=== PATIENT | female | born 1945 | race Caucasian/White ===

== ENCOUNTER → 2017-01-13 | Outpatient (CLI) | payer OTHER ==
--- NOTE | 2017-01-13 13:25 | MRI ---
EXAM DESCRIPTION: Lumbar Spine w/o Contrast CLINICAL HISTORY: 71 years, Female, RADICULITIS , left hip pain, laminectomy L4-5 2014 COMPARISON: None. FINDINGS: Bone marrow has normal signal characteristics except for laminectomy changes L4-5. Straightening. Conus terminates at L1. Left lumbar curvature probably degenerative. Sagittal view shows mild bulge and narrowing T11-12 minimal bulge T12-L1. L1-2 shows narrowing with diffuse bulging disc extending the exit foramen bilaterally slightly more on the right. Mild facet degenerative change. At L2-3 narrowing with diffuse bulging disc osteophyte extending the exit foramen bilaterally more on the right. Mild facet degenerative change. At L3-4, narrowing with diffuse bulging disc slightly asymmetric to the right with slight impression on the thecal sac.. There is mild foraminal narrowing, more on the left. Narrowing and postsurgical changes L4-5. Some field artifact related to postsurgical change. Diffuse bulging disc present extends into the exit foramen bilaterally more on the left. Slight impingement the exiting left L4 root. About 4 mm of anterolisthesis. At L5-S1 mild narrowing bulging disc asymmetric to the left. Facet degenerative change more on left with slight left lateral recess encroachment IMPRESSION: 1. Mild to moderate disc disease throughout the lumbar spine. 2. Postsurgical changes L4-5 with diffuse bulging disc and 4 mm of anterolisthesis. Bilateral foraminal narrowing and slight impingement on the exiting left L4 root. 3. Bulging discs L2-3 and L3-4, both levels asymmetric to the right. There is slight foraminal narrowing on the left L3-4. Other mild disc changes present as discussed Electronically signed by: Khang Montanez MD 01/13/2017 1:22 PM CDT
== END | disposition home or self-care (01) ==
LOC: MRI 09:30
PROVIDERS: ATTEND Nurse Practitioner Family
DX: M51.37 Other intervertebral disc degeneration, lumbosacral region (principal)

== ENCOUNTER → 2018-01-30 | Outpatient (CLI) | payer MEDICARE, OTHER ==
--- NOTE | 2018-02-01 10:00 | MRI ---
MRI right femur/thigh without contrast INDICATION: Upper thigh pain into groin pain difficult walking TECHNIQUE: Noncontrast MR imaging right thigh/femur FINDINGS: There is artifact at the right knee suggesting previous arthroplasty. No destructive lesion or fracture in the femoral shaft. There is however prominent fluid in the right hip. Dedicated hip MRI would be useful. There is suggestion of partial tearing of the gluteal tendons at the greater trochanter as well. No hamstring proximal detachment/rupture. No advanced muscle atrophy in the thigh. No inflammatory process noted or soft tissue mass. IMPRESSION: Partially visualized large effusion in the right hip recommend dedicated MRI of the right hip Tendinopathy and probable partial tearing of the right gluteal tendons which will be better characterized on a dedicated hip MRI Status post right knee arthroplasty No acute process in the thigh otherwise Electronically signed by: Mason Clemente MD 02/01/2018 9:58 AM CDT
== END ==
LOC: MRI 13:45
PROVIDERS: ATTEND Nurse Practitioner Family
DX: M79.651 Pain in right thigh (principal); Z96.651 Presence of right artificial knee joint

== ENCOUNTER → 2018-02-11 | Outpatient (CLI) | payer MEDICARE ==
--- NOTE | 2018-02-12 08:19 | MRI ---
MRI right hip without contrast INDICATION: Groin pain abnormal hip effusion noted on previous MRI January 30 TECHNIQUE: Noncontrast MR imaging right hip FINDINGS: There is mild osteoarthrosis of the right hip. There is prominent joint fluid. Subchondral cystic changes and edema are noted primarily along the medial aspect with diffuse degenerative labral tear. No discrete fracture or stress fracture. No active osteonecrosis. There is tendinopathy and interstitial fissuring of the gluteal tendons without rupture or retraction. There is a diffuse labral tear with para labral cyst formation and synovitis. This is most severe anterior superior. IMPRESSION: Mild osteoarthrosis right hip with diffuse chronic degenerative labral tear and para labral cyst formation Large joint effusion with mild synovitis Tendinopathy of the gluteal tendons without rupture or retraction No hamstring rupture or retraction Electronically signed by: Mason Clemente MD 02/12/2018 8:18 AM CDT
== END ==
LOC: MRI 13:39
PROVIDERS: ATTEND Nurse Practitioner Family
DX: R93.7 Abnormal findings on diagnostic imaging of other parts of musculoskeletal system (principal); M16.11 Unilateral primary osteoarthritis, right hip; M25.451 Effusion, right hip

== ENCOUNTER → 2018-02-19 | Outpatient (CLI) | payer MEDICARE ==
--- NOTE | 2018-02-19 13:39 | RAD ---
EXAM DESCRIPTION: Hip,Right 2 Views CLINICAL HISTORY: 72 years Female, PAIN IN RIGHT HIP COMPARISON: MRI of the right hip dated 02/11/2018. FINDINGS: The visualized bones are well-mineralized.No acute fracture or dislocation. Mild osteoarthritis. The soft tissues appear grossly unremarkable. IMPRESSION: Mild osteoarthritis of the right hip. Electronically signed by: Zoë Fuentes MD 02/19/2018 1:38 PM CDT
--- NOTE | 2018-02-19 13:39 | RAD ---
EXAM DESCRIPTION: Pelvis CLINICAL HISTORY: 72 years Female, PAIN IN RIGHT HIP COMPARISON: MRI of the right hip dated 02/11/2018. TECHNIQUE: AP radiograph of the pelvis was performed. FINDINGS: The pelvic ring appears grossly intact on this single AP radiograph. No acute fracture or dislocation. Bilateral sacroiliac joints appear normal. Mild degenerative changes are noted in the right hip The visualized lumbo-sacral spine demonstrates mild degenerative changes. IMPRESSION: Single AP radiograph of the pelvis demonstrates grossly intact pelvic ring. . Mild right hip osteoarthritis. Electronically signed by: Zoë Fuentes MD 02/19/2018 1:38 PM CDT
== END ==
LOC: RAD 09:16
PROVIDERS: ATTEND Orthopaedic Surgery
DX: M16.11 Unilateral primary osteoarthritis, right hip (principal)

== ENCOUNTER → 2018-02-20 | Outpatient (CLI) | payer MEDICARE | LOC: LAB.O 13:54 | PROVIDERS: ATTEND Orthopaedic Surgery | DX: M25.551 Pain in right hip (principal) ==

== ENCOUNTER 2018-02-27 06:10 | Day surgery (SDC) | payer MEDICARE ==
[2018-02-27] MEDS ORDERED: LACTATED RINGERS 1,000 ML ONE (06:39)
[2018-02-27] MEDS ORDERED: LIDOCAINE 1% 10 ML VIAL INJ ONE (07:00)
[2018-02-27] MEDS ORDERED: PROPOFOL 200 MG/20 ML VIAL IV ONE (07:00)
[2018-02-27] MEDS ORDERED: BUPIVACAINE 0.25% INJ 30 ML VIAL INJ ONE (07:09)
[2018-02-27] MEDS ORDERED: methylPREDNISolone ACETATE 80 MG/ML VIAL ONE (07:10)
[2018-02-27] MEDS ORDERED: LIDOCAINE 1% W/ EPINEPHRINE 20 ML VIAL INJ ONE (07:10)
[2018-02-27 09:58] VITALS: BP 127/68; TEMP 98; O2SAT 97
--- NOTE | 2018-03-05 08:56 | OP ---
DATE OF PROCEDURE: 02/27/18 PREOPERATIVE DIAGNOSIS: 1. Osteoarthritis of the hip. POSTOPERATIVE DIAGNOSIS: 1. Osteoarthritis of the hip. PROCEDURE: 1. Intraarticular injection of the hip. SURGEON: Uvaldo Foss MD. CAR SPOTTER: Juan Antonio Solorio CST, SA-C. ANESTHESIA: Conscious sedation. COMPLICATIONS: None. FINDINGS: Arthritis of the hip. INDICATION: Ms. Muro has a history of pain in the groin that has been refractory to conservative measures. Because of the pain, she requested injection in the hip. After discussing the risks, benefits and alternatives to that, the patient has given informed consent for that. PROCEDURE: The patient was brought to the Operating Room and placed in supine position. Conscious sedation was administered and the leg was flexed, abducted and externally rotated. The groin was prepped and fluoroscopic imaging was used to confirm needle placement into the hip joint through a medial portal. Once placement had been confirmed, a combination of lidocaine and Depo-Medrol were injected into the joint. After injection, the needle was withdrawn. Pressure was held on the injection site. A sterile band-aid was placed. The patient was then taken back to the Day Surgery Unit. POSTOPERATIVE INSTRUCTIONS: The patient will be weight-bearing as tolerated. The patient will followup with us in about 10 days. #[id number] [facility]
== END 2018-02-27 09:50 | disposition home or self-care (01) ==
LOC: AMB 06:10
PROVIDERS: ATTEND Orthopaedic Surgery
DX: M16.11 Unilateral primary osteoarthritis, right hip (principal); I10 Essential (primary) hypertension; Z87.891 Personal history of nicotine dependence; Z88.5 Allergy status to narcotic agent; Z79.899 Other long term (current) drug therapy
CPT/HCPCS: 01200; 20610; 76000; 87070; J1030; J3490; J7120

== ENCOUNTER → 2018-03-13 | Outpatient (CLI) | payer MEDICARE | LOC: LAB.O 10:13 | PROVIDERS: ATTEND Orthopaedic Surgery | DX: Z01.818 Encounter for other preprocedural examination (principal) ==

== ENCOUNTER → 2018-03-18 | Outpatient (CLI) | payer MEDICARE | LOC: RESP 14:47 | PROVIDERS: ATTEND Nurse Practitioner Family | DX: I10 Essential (primary) hypertension (principal) ==

== ENCOUNTER → 2018-04-15 | Outpatient (CLI) | payer MEDICARE | LOC: LAB.O 09:27 | PROVIDERS: ATTEND Orthopaedic Surgery | DX: Z01.818 Encounter for other preprocedural examination (principal) ==

== ENCOUNTER 2018-04-21 05:53 | Inpatient (IN) | payer MEDICARE ==
--- NOTE | 2018-04-20 11:25 | HP ---
CHIEF COMPLAINT: Right hip pain. HISTORY OF PRESENT ILLNESS: Ms. Muro is a 72-year-old female with a history of severe groin pain that has been getting progressively worse over several years. She has had pain that has been nonresponsive to conservative measures. Because of her pain, she has requested operative intervention. After discussing the risks, benefits and alternatives to operative intervention , the patient has given informed consent for total hip arthroplasty. PAST SURGICAL HISTORY: 1. Bilateral total knee arthroplasty. MEDICATIONS: 1. Potassium. 2. PreserVision. 3. Biotin. 4. Multiple vitamins. ALLERGIES: She states no allergies, but she says morphine does not give her any relief and requests we do not use it. CODE STATUS: Full code. IMMUNIZATIONS: Up to date. FAMILY HISTORY: None pertinent to today's complaint. SOCIAL HISTORY: The patient does not smoke or use any illicit drugs. She does drink on occasion. REVIEW OF SYSTEMS: Negative except as indicated in the History of Present Illness. PHYSICAL EXAMINATION: VITAL SIGNS: Blood pressure 138/99. Pulse 67. Height 5'7". Weight 186 pounds. MENTAL STATUS: The patient is awake, alert, and is able to give a good history and participate in the physical. The patient is oriented to person, place and time. SKIN: Normal tone and turgor. HEENT: Normocephalic, atraumatic. Pupils equal, round and reactive. Mucosal membranes are moist. NECK: Normal range of motion. No thyromegaly, no lymphadenopathy. CHEST: Normal respiratory excursion. CARDIAC: Regular rate and rhythm. No murmurs, rubs or gallops. MUSCULOSKELETAL: The right upper extremity shows some minor discomfort with abduction and forward flexion. She does maintain full range of motion. Sensation is intact. It is warm and well perfused. There is no deformity or crepitus. The left upper extremity shows full painless range of motion. Sensation is intact. It is warm and well perfused. Strength is 5/5. The left lower extremity shows no significant pain with range of motion of the hip and knee. She has no deformity. Sensation is intact. It is warm and well perfused. Strength is 5/5. The right lower extremity show severe pain with range of motion of the hip and she has 0 degrees of internal rotation and about 20 to 30 degrees of external rotation today. She walks with an antalgic gait. Adduction is to about 25 degrees today. IMAGING: X-rays show joint space narrowing. ASSESSMENT: 1. Arthritis. PLAN: The plan at this point is for total hip arthroplasty. We have discussed the risks, benefits, and alternatives to that and the patient has given informed consent. [facility][id number] [facility]
--- NOTE | 2018-04-20 12:11 | RAD ---
Procedure: XR CHEST 2 VIEWS Exam Date: 04/20/2018 Ordering Provider: EJ ADAMS Clinical Indication: pre op Comparison: 11/17/2009 Findings: Cardiomediastinal silhouette is within normal limits. No focal lung consolidation. No pleural effusion. No pneumothorax. No acute osseous abnormality. Impression: 1. No acute abnormalities in the chest. Electronically signed by: Steven Hines MD 04/20/2018 12:10 PM CDT
[2018-04-21] MEDS ORDERED: TRANEXAMIC ACID 1,000 MG/10 ML VIAL ONE ×2 (05:54→05:56)
[2018-04-21] MEDS ORDERED: LACTATED RINGERS 1,000 ML ONE (05:54)
[2018-04-21] MEDS ORDERED: ceFAZolin SODIUM 1 GM VIAL ONE ×3 (05:55→06:23)
[2018-04-21] MEDS ORDERED: SODIUM CHL 0.9% 100ML MINI-BAG 100 ML IVPB ONE (05:55)
[2018-04-21] MEDS ORDERED: SODIUM CHLORIDE 0.9% 250ML 250 ML ONE ×3 (06:03→21:15)
[2018-04-21] MEDS ORDERED: VANCOMYCIN HCL INJ 1,000 MG VIAL IVPB ONE ×4 (06:03→21:15)
[2018-04-21] MEDS ORDERED: SODIUM CHLORIDE 0.9% 100ML 100 ML IVPB ONE (06:13)
[2018-04-21] MEDS ORDERED: ELECTROLYTE-A 1,000 ML IVS ONE ×2 (06:18→09:11)
[2018-04-21] MEDS ORDERED: ACETAMINOPHEN IV 1000MG 100 ML ONE (06:18)
[2018-04-21] MEDS ORDERED: MORPHINE SULF *EPIDURAL* 1 MG/ML VIAL ONE (06:18)
[2018-04-21] MEDS ORDERED: ROCURONIUM BROMIDE 10 MG/ML VIAL ONE (06:19)
[2018-04-21] MEDS ORDERED: MIDAZOLAM INJ 2 MG/2 ML VIAL ONE (06:19)
[2018-04-21] MEDS ORDERED: fentaNYL CITRATE INJ 50 MCG/ML AMP ONE (06:19)
[2018-04-21] MEDS ORDERED: PROMETHAZINE HCL INJ 12.5 MG in SODIUM CHLORIDE 0.9% 50ML 50 ML IVPB PRN (07:25)
[2018-04-21] MEDS ORDERED: PROMETHAZINE HCL INJ 25 MG in SODIUM CHLORIDE 0.9% 50ML 50 ML IVPB PRN (07:25)
[2018-04-21] MEDS ORDERED: ALUMINUM & MAGNESIUM HYDROXIDE 30 ML UD PO PRN (07:25)
[2018-04-21] MEDS ORDERED: ZOLPIDEM TARTRATE 5 MG TAB PO PRN (07:25)
[2018-04-21] MEDS ORDERED: NALOXONE HCL INJ 0.4 MG/ML VIAL IV PRN (07:25)
[2018-04-21] MEDS ORDERED: SODIUM CHLORIDE 0.9% (FLUSH) 10 ML SYG IV PRN (07:25)
[2018-04-21] MEDS ORDERED: BENZOCAINE-MENTH LOZ (CEPACOL) 1 EA LOZ MT PRN (07:25)
[2018-04-21] MEDS ORDERED: ACETAMINOPHEN 325 MG TAB PO PRN (07:25)
[2018-04-21] MEDS ORDERED: BISACODYL SUPPOSITORY 10 MG PR PRN (07:25)
[2018-04-21] MEDS ORDERED: MAGNESIUM HYDROXIDE 30 ML UD PO PRN (07:25)
[2018-04-21] MEDS ORDERED: DEX 5% W/NACL 0.45% 1000ML 1,000 ML IVS PRN (07:25)
[2018-04-21] MEDS ORDERED: ACETAMINOPHEN 500 MG TAB PO PRN (07:25)
[2018-04-21] MEDS ORDERED: TEMAZEPAM 15 MG CAP PO PRN (07:25)
[2018-04-21] MEDS ORDERED: MORPHINE SULFATE INJ 10 MG/ML VIAL IM PRN (07:25)
[2018-04-21] MEDS ORDERED: traMADol HCL 50 MG TAB PO PRN (07:25)
[2018-04-21] MEDS ORDERED: HYDROmorphone PCA 0.2 MG/ML 1 BAG BAG IVPB SCH (07:30)
[2018-04-21] MEDS ORDERED: MORPHINE PCA 1 MG/ML 100 ML BAG IVPB SCH (07:30)
[2018-04-21] MEDS: BUPIVACAINE LIPOSOME 13.3 MG/ML VIAL INJ ONE ×2 (08:55→08:58)
[2018-04-21] MEDS: BUPIVACAINE 0.5% 30 ML VIAL INJ ONE ×2 (08:55→08:58)
[2018-04-21] MEDS: ONDANSETRON INJ 4 MG/2 ML VIAL IV PRN ×2 (10:36→15:57)
--- NOTE | 2018-04-21 11:53 | CONS ---
SUPERVISING PHYSICIAN: Dimitry Gerber MD REFERRING PHYSICIAN: Uvaldo Foss MD HISTORY OF PRESENT ILLNESS: This is a 72-year-old female who has been progressively having right hip pain. Conservative measures were utilized at first, however, there was no resolution of the pain. Therefore, she opted for a right total hip arthroplasty. This was done today with no intraoperative complications. She came to the Medical/Surgical Unit postoperatively in no acute distress with a pain rating of 3. She is alert and oriented postoperatively. PAST MEDICAL HISTORY: 1. Hypertension. 2. Hyperlipidemia. 3. Marvin thyroiditis. 4. Sjgren's disease. PAST SURGICAL HISTORY: 1. Bilateral total knee arthroplasty. 2. Laminectomy. 3. Hysterectomy. 4. Breast augmentation. 5. Bunionectomy. HOME MEDICATIONS: 1. Lipitor 40 mg p.o. at bedtime. 2. Vitamin B complex with biotin and folic acid 1 capsule p.o. daily. 3. Biotin maximum strength 10,000 mcg p.o. daily. 4. Bupropion 300 mg p.o. daily. 5. Mobic 15 mg p.o. daily. 6. Toprol XL 50 mg p.o. daily. 7. Multivitamin 1 cap p.o. b.i.d. 8. Potassium 75 mg p.o. daily. 9. Amour thyroid 90 mg p.o. daily. 10. Vitamins A and D with K 1 capsule p.o. daily. ALLERGIES: NO KNOWN DRUG ALLERGIES. She does state morphine is ineffective. FAMILY HISTORY: She has some family that have hypertension. SOCIAL HISTORY: The patient does not drink, does not smoke, does not utilize any illicit drugs. REVIEW OF SYSTEMS: CONSTITUTIONAL: No fever or chills. No recent weight loss or weight gain. HEENT: No headaches, vision changes, ear pain, nasal congestion or throat pain. RESPIRATORY: No cough, hemoptysis or pleuritic chest pain. CARDIOVASCULAR: No chest pain, palpitations or peripheral edema. GASTROINTESTINAL: No nausea, vomiting, diarrhea, constipation or abdominal pain. GENITOURINARY: No dysuria, frequency or flank pain. HEMATOLOGIC: No easy bruising and no transfusion reaction. MUSCULOSKELETAL: Positive for right hip pain. Otherwise, negative for muscle cramps, joint pain or joint swelling. ENDOCRINE: No polydipsia, polyuria or polyphagia. No heat or cold intolerance. NEUROLOGIC: No syncope, paresthesias or seizures. PHYSICAL EXAMINATION: VITAL SIGNS: Blood pressure 115/78. Heart rate 64. Respiratory rate 16. Temperature 98.3. Oxygen saturation 96%. GENERAL: Ms. Muro is a 72-year-old male in no active distress currently. HEENT: Normocephalic, atraumatic. Pupils are equal and reactive. No nasal drainage. Throat with moist mucosa. NECK: Supple. Midline trachea. No jugular venous distention. CHEST: Symmetrical with equal rise and fall of the chest with inspiration and expiration. Lung sounds are clear to auscultation bilaterally. CARDIOVASCULAR: Regular rate and rhythm. Normal S1, S2. ABDOMEN: Soft. Positive bowel sounds. GENITOURINARY: Deferred. EXTREMITIES: Lower extremities with no significant edema. Pulses 2+. Capillary refill is less than 2 seconds. Right hip with a dressing which is dry and intact. NEUROLOGIC: The patient is alert and oriented. Moves all extremities. Extraocular movements are intact. LABORATORY: Labs are reviewed. Preoperative labs appear to be unremarkable. ASSESSMENT: 1. Right hip osteoarthritis status post right total hip arthroplasty, postoperative day 0. 2. Hypertension. 3. Hyperlipidemia. 4. Hypothyroidism. 5. History of Sjgren's disease. PLAN: At this point, postoperative orders are being utilized via Dr. Foss's postoperative orders. Pain control via RETINAL ANGIOGRAPHER pump at this time. We will resume her home medications. We will check hemoglobin and hematocrit in the morning. #[id number] [facility]
[2018-04-21] MEDS: MAGNESIUM OXIDE 400 MG TAB PO SCH (12:36)
[2018-04-21] MEDS: IV SET AND CAP CHANGE INJ INJ SCH (12:36)
[2018-04-21] MEDS: CELECOXIB 100 MG CAP PO SCH ×2 (12:36→17:29)
[2018-04-21] MEDS ORDERED: ceFAZolin SODIUM 2 GRAMS PREMI 50 ML IVPB ONE ×3 (13:59→21:16)
[2018-04-21] MEDS: ceFAZolin SODIUM 2 GRAMS PREMI 2 GM in PREMIX BAG 1 BAG IVPB SCH ×2 (14:01→22:02)
--- NOTE | 2018-04-21 14:36 | RAD ---
EXAM DESCRIPTION: Hip, right 2 Views CLINICAL HISTORY: post op COMPARISON: Radiographs of the AP pelvis. TECHNIQUE: AP: neutral and abduction images. Right hip. FINDINGS: Postoperative image of right total hip arthroplasty. Customary position and near-anatomic alignment. Acetabular component with fixation by 3 screws. Normal bone density around the screws in the component. Normal bone density around the femoral stem. Typical postsurgical soft tissue changes in the upper thigh. No abnormal radiodense objects in the soft tissues or joint spaces. IMPRESSION: Postop right total hip arthroplasty. Customary position and near-anatomic alignment. No bone or hardware complications. Electronically signed by: Juan Antonio Howard MD 04/21/2018 2:34 PM CDT
--- NOTE | 2018-04-21 14:38 | RAD ---
EXAM DESCRIPTION: Pelvis CLINICAL HISTORY: post op COMPARISON: None Available. TECHNIQUE: AP view only. FINDINGS: No fracture dislocation. Normal bone density. Right total hip arthroplasty. Customary position and near-anatomic alignment of the hardware. Bone density around the hardware is unremarkable. 3 screws for fixation of the acetabular component. No abnormal radiodense objects in the soft tissues or joint spaces. Upper pelvis above the S1 level was not imaged on the study. IMPRESSION: Status post right total hip arthroplasty. Customary position and near-anatomic alignment. Electronically signed by: Juan Antonio Howard MD 04/21/2018 2:36 PM CDT
[2018-04-21] MEDS: VANCOMYCIN HCL INJ 1,000 MG in SODIUM CHLORIDE 0.9% 250ML 250 ML IVPB SCH (17:29)
[2018-04-21] MEDS ORDERED: MULTIPLE VITAMIN 1 EA TAB PO ONE (19:52)
[2018-04-21] MEDS ORDERED: ENOXAPARIN SODIUM 30 MG/0.3 ML SYG SUBCU ONE (19:53)
[2018-04-21] MEDS ORDERED: THYROID 60 MG TAB PO ONE (19:53)
[2018-04-21] MEDS: DOCUSATE CALCIUM 240 MG CAP PO SCH (20:34)
[2018-04-21] MEDS: ATORVASTATIN 20 MG TAB PO SCH (20:34)
[2018-04-21] MEDS: MULTIPLE VITAMINS W/ MINERALS 1 EA TAB PO SCH (20:37)
[2018-04-21] MEDS: ENOXAPARIN SODIUM 30 MG/0.3 ML SYG SUBCU SCH (22:33)
[2018-04-22] MEDS: VANCOMYCIN HCL INJ 1,000 MG in SODIUM CHLORIDE 0.9% 250ML 250 ML IVPB SCH (06:18)
[2018-04-22] MEDS: THYROID 60 MG TAB PO SCH (06:19)
[2018-04-22] MEDS: ceFAZolin SODIUM 2 GRAMS PREMI 2 GM in PREMIX BAG 1 BAG IVPB SCH (06:19)
[2018-04-22] MEDS: CELECOXIB 100 MG CAP PO SCH ×2 (08:05→16:37)
[2018-04-22] MEDS: CYCLOBENZAPRINE HCL 10 MG TAB PO PRN ×2 (08:06→20:44)
[2018-04-22] MEDS: HYDROcodone 5MG/APAP 325MG 1 EA TAB PO PRN ×4 (08:06→20:44)
[2018-04-22] MEDS: METOPROLOL SUCCINATE XL 50 MG TAB PO SCH (09:31)
[2018-04-22] MEDS: MULTIPLE VITAMINS W/ MINERALS 1 EA TAB PO SCH ×2 (09:31→20:43)
[2018-04-22] MEDS: Wellbutrin XL 150 MG TAB PO SCH (09:31)
[2018-04-22] MEDS: MAGNESIUM OXIDE 400 MG TAB PO SCH (09:31)
[2018-04-22] MEDS: ENOXAPARIN SODIUM 30 MG/0.3 ML SYG SUBCU SCH ×2 (11:16→22:32)
--- NOTE | 2018-04-22 14:10 | PN ---
SUPERVISING PHYSICIAN: Dimitry Gerber MD DATE: 04/22/18 SUBJECTIVE: The patient is sitting up in her chair in her hospital room. She has no complaints. She requested that the morphine be stopped as it made her feel kind of funny and her pain is being controlled with the [place]. Otherwise, no shortness of breath, nausea, vomiting, diarrhea or constipation. OBJECTIVE: VITAL SIGNS: Afebrile. Heart rate 76. Blood pressure 110/72. Respiratory rate 96. RESPIRATORY: Essentially clear to auscultation bilaterally. CARDIAC: Regular rate and rhythm. GASTROINTESTINAL: Abdomen is soft, nondistended, nontender. Bowel sounds are positive. EXTREMITIES: Bilateral pedal pulses are palpable at +2. Her dressing to her lateral right hip is dry and intact. NEUROLOGIC: Awake, alert and oriented times three. LABORATORY: Hemoglobin 10.3, hematocrit 31.3. All other labs and films have been reviewed via the EMR. ASSESSMENT: 1. Right hip osteoarthritis status post right total hip arthroplasty per Dr. Uvaldo Foss, orthopedic surgeon, postoperative day 1. 2. Hypertension. 3. Hyperlipidemia. 4. Hypothyroidism. 5. History of Sjgren's disease. PLAN: We will continue present supportive care. Orthopedic issues will be per Dr. Uvaldo Foss, orthopedic surgeon. She will continue with her strengthening and conditioning per physical therapy. I encouraged good pulmonary hygiene. We will follow the patient as needed. [facility][id number] [facility]
[2018-04-22] MEDS: ATORVASTATIN 20 MG TAB PO SCH (20:43)
[2018-04-22] MEDS: DOCUSATE CALCIUM 240 MG CAP PO SCH (20:44)
[2018-04-23] MEDS: HYDROcodone 5MG/APAP 325MG 1 EA TAB PO PRN ×5 (01:48→20:55)
[2018-04-23] MEDS: THYROID 60 MG TAB PO SCH (06:22)
[2018-04-23] MEDS: CELECOXIB 100 MG CAP PO SCH ×2 (07:38→17:03)
[2018-04-23] MEDS: CYCLOBENZAPRINE HCL 10 MG TAB PO PRN ×2 (07:39→20:55)
[2018-04-23] MEDS: MULTIPLE VITAMINS W/ MINERALS 1 EA TAB PO SCH ×2 (08:50→20:54)
[2018-04-23] MEDS: METOPROLOL SUCCINATE XL 50 MG TAB PO SCH (08:50)
[2018-04-23] MEDS: MAGNESIUM OXIDE 400 MG TAB PO SCH (08:50)
[2018-04-23] MEDS: Wellbutrin XL 150 MG TAB PO SCH (08:50)
[2018-04-23] MEDS: SODIUM CHLORIDE 0.9% (FLUSH) 10 ML SYG IV SCH ×2 (08:51→20:54)
[2018-04-23] MEDS: ENOXAPARIN SODIUM 30 MG/0.3 ML SYG SUBCU SCH ×2 (10:37→23:25)
--- NOTE | 2018-04-23 13:34 | PN ---
SUPERVISING PHYSICIAN: Dimitry Gerber MD DATE: 04/23/18 SUBJECTIVE: The patient is sitting up in bed. Her is at the bedside. She has no complaints of nausea, vomiting, diarrhea or constipation. We did discuss at length her discharge plan and at this point she would like to go to Swing [facility] at [facility] due to the proximity of her home. OBJECTIVE: VITAL SIGNS: Temperature 972. Heart rate 79. Blood pressure 123/78. Respiratory rate 16. 02 saturation 99% on room air. RESPIRATORY: Essentially clear to auscultation bilaterally. CARDIAC: Regular rate and rhythm. GASTROINTESTINAL: Abdomen is soft, nondistended, nontender. Bowel sounds are positive. EXTREMITIES: No cyanosis, clubbing, or edema. Her bilateral pedal pulses are palpable at +2. Her dressing to her right lateral hip is dry and intact. LABS AND FILMS: There are no labs or films to report at this tome. ASSESSMENT: 1. Right hip osteoarthritis status post right total hip arthroplasty per Dr. Uvaldo Foss, orthopedic surgeon, postoperative day #2. 2. Hypertension. 3. Hyperlipidemia. 4. Hypothyroidism. 5. History of Sjgren's disease. PLAN: We will continue present supportive care. She is continuing with her physical therapy. She does have some limited mobility in that right hip area and a brace has been ordered. We will await the brace to assist with her physical therapy. We will defer to physical therapy as to when her discharge will be but at the patient's wishes, she would like to go to the [facility] and I will talk to them about what day we will discharge her to that facility and will get the paperwork started. Otherwise, continue good pulmonary hygiene and will followup as needed. #[id number] [facility]
[2018-04-23] MEDS: ATORVASTATIN 20 MG TAB PO SCH (20:54)
[2018-04-23] MEDS: DOCUSATE CALCIUM 240 MG CAP PO SCH (20:55)
[2018-04-24] MEDS: THYROID 60 MG TAB PO SCH (06:06)
[2018-04-24] MEDS: CELECOXIB 100 MG CAP PO SCH (07:14)
[2018-04-24] MEDS: IV SET AND CAP CHANGE INJ INJ SCH (07:14)
[2018-04-24] MEDS: ONDANSETRON INJ 4 MG/2 ML VIAL IV PRN (07:17)
[2018-04-24] MEDS: HYDROcodone 5MG/APAP 325MG 1 EA TAB PO PRN (07:57)
[2018-04-24] MEDS: METOPROLOL SUCCINATE XL 50 MG TAB PO SCH (08:00)
[2018-04-24] MEDS: MAGNESIUM OXIDE 400 MG TAB PO SCH (08:00)
[2018-04-24] MEDS: Wellbutrin XL 150 MG TAB PO SCH (08:00)
[2018-04-24] MEDS: MULTIPLE VITAMINS W/ MINERALS 1 EA TAB PO SCH (08:00)
[2018-04-24] MEDS: CYCLOBENZAPRINE HCL 10 MG TAB PO PRN (08:03)
[2018-04-24] MEDS: SODIUM CHLORIDE 0.9% (FLUSH) 10 ML SYG IV SCH (08:11)
[2018-04-24 09:37] VITALS: BP 105/70; TEMP 98.5; O2SAT 96
[2018-04-24] MEDS: ENOXAPARIN SODIUM 30 MG/0.3 ML SYG SUBCU SCH (10:26)
[2018-04-24] MEDS ORDERED: MAGNESIUM HYDROXIDE 30 ML UD PO ONE (21:00)
[2018-04-24] MEDS ORDERED: BISACODYL SUPPOSITORY 10 MG PR ONE (21:00)
--- NOTE | 2018-04-27 08:11 | PN ---
DATE: 04/21/18 POSTOPERATIVE CHECK SUBJECTIVE: Ms. Muro is doing well. She has no pain. OBJECTIVE: Afebrile. Vital signs stable. Dressing is clean, dry and intact. ASSESSMENT: Status post total hip arthroplasty. PLAN: Begin weightbearing as tolerated on postoperative day 1. Therapy as well as the family has been made aware that the abductor musculature must be protected throughout her recovery. #[id number] [facility]
--- NOTE | 2018-04-27 08:12 | PN ---
DATE: 04/22/18 SUBJECTIVE: Ms. Muro is doing well. Her pain is relatively minimal. OBJECTIVE: Afebrile. Vital signs stable. Dressing is clean, dry and intact. ASSESSMENT: Status post total hip arthroplasty. PLAN: Begin partial weightbearing today. We are in the process of obtaining an abduction brace. [facility][id number] [facility]
--- NOTE | 2018-04-27 08:15 | PN ---
DATE: 04/23/18 SUBJECTIVE: Ms. Muro seems to be doing well today. OBJECTIVE: Afebrile. Vital signs stable. Wound is clean. There are no signs or symptoms of infection. ASSESSMENT: Status post total hip arthroplasty. PLAN: The plan at this point is for her to do partial weightbearing. We will continue with that and continue trying to obtain a brace for her. [facility][id number] [facility]
--- NOTE | 2018-04-27 08:38 | OP ---
DATE OF PROCEDURE: 04/21/18 PREOPERATIVE DIAGNOSIS: 1. Osteoarthritis of the hip. POSTOPERATIVE DIAGNOSIS: 1. Osteoarthritis of the hip. 2. Rupture of the gluteus minimus and high-grade tear of gluteus medius. PROCEDURE: 1. Total hip arthroplasty. SURGEON: Uvaldo Foss MD. PHARMACIST HOSPITAL: Juan Antonio Solorio CST, SA-C. ANESTHESIA: General anesthesia. COMPLICATIONS: None. FINDINGS: 1. Severe osteoarthritis of the hip. 2. Rupture of the gluteus minimus and high-grade tear of gluteus medius. INDICATION: Ms. Muro has a history of severe pain which she has had both in the groin as well as the lateral aspect of the hip. It has been there and getting progressively worse over the course of several years. Because of the severity of the pain and failure of conservative measures, she has requested operative intervention. After discussing the risks, benefits and alternatives to that, the patient has given informed consent for total hip arthroplasty. PROCEDURE: The patient was brought to the Operating Room and placed in supine position. General anesthesia was induced and the patient was transitioned into the lateral decubitus position. The leg and hemipelvis were then sterilely prepped and draped. Following prepping and draping, an incision was made in line with the femur centered on the greater trochanter. Dissection was carried down to the iliotibial band, which was split along the course of its fibers. Upon splitting of the IT band, it was noted that there was high-grade rupture of the gluteus medius and full thickness rupture of the gluteus minimus. The remaining fibers were elevated off bone and a capsulotomy was performed. The hip was dislocated. The primary femoral neck cut was made and the acetabulum was exposed. Sequential reaming was used to expose subchondral cancellous bone. A size 51 reamer was used to accommodate a size 52 cup. A liner was placed and attention was then focused on the femur. Subsequent reaming and broaching were performed and a size 9 broach was used and trial reduction was performed off that. The hip was taken through a range of motion and found to be stable without evidence of impending dislocation or impingement. The hip was again reduced and the trial component was removed. The final component was impacted in place and the femoral head was impacted. The hip was reduced and again taken through a range of motion. Leg lengths appeared to be equal. There was no evidence of impingement or pending dislocation. The wound was very thoroughly irrigated and every attempt was made to reapproximate the musculature to an anatomic position. The abductor musculature was reapplied to the greater trochanter utilizing both [place] through drill holes and also utilizing PDS. The IT band was then closed along the course of its fibers. The skin and subcutaneous tissues were closed with a combination of running and interrupted stitches. Sterile dressings were placed. The patient was awoken from anesthesia and taken to the Recovery Room. POSTOPERATIVE PLAN: The patient will be partial weightbearing initially. I have given her explicit instructions, as I have to the family, regarding the findings of the abductor musculature at the time of surgery. We are going to get a brace for her to help protect the repair of the abductor musculature. COMPONENTS: [place] Secur-Fit stem size 9, size 52 Tritanium Hemispherical cup , size 36 head. [facility][id number] [facility]
--- NOTE | 2018-05-02 17:48 | DS ---
SUPERVISING PHYSICIAN: Henry Gerber M.D. DISCHARGE DIAGNOSIS: 1. Right hip osteoarthritis status post right total hip arthroplasty per Dr. Uvaldo Foss, orthopedic surgeon, postoperative day #3. 2. Hypertension, stable. 3. Hyperlipidemia, stable. 4. Hypothyroidism, stable. 5. History of Sjgren's disease. HISTORY OF PRESENT ILLNESS: This is a 72-year-old female who has had progressively worsening right hip pain. She tried conservative measures but there was no resolution of the pain. Therefore, she elected for Dr. Uvaldo Foss , orthopedic surgeon for a right total hip arthroplasty. She had no intraoperative complications. She was seen and evaluated postoperatively on the Med/Surg unit. HOSPITAL COURSE: During the next 2 days she completed her postoperative physical therapy without any complications or problems. She met her goals and today she is to be discharged home in stable condition. DISCHARGE PLAN: The patient will be discharged to [facility] in [place], [place] to continue her physical therapy for strengthening and conditioning. She is to followup with Dr. Uvaldo Foss on 05/08/18 for her postoperative followup. She is sent home on 31 additional days of Xarelto as well as some Cyclobenzaprine. She is to resume her previous medications in addition to her new medications. Her activity will be per Physical Therapy. She is to call Dr. Foss's office for any problems or complications. DISCHARGE MEDICATIONS: 1. Vitamins A and D with K. 2. [place] Thyroid. 3. Mobic. 4. Bupropion. 5. Biotin. 6. B complex vitamins. 7. Lipitor. 8. Multivitamins. 9. Metoprolol. 10. Cyclobenzaprine. 11. Hydrocodone. 12. Xarelto. #[id number] [facility]
== END 2018-04-24 10:56 | disposition swing bed (61) | DRG 470 ==
LOC: AMB 05:53 → MS 11:00 → UNDOADMIN 11:26 → MS 11:26
PROVIDERS: ADMIT Orthopaedic Surgery; ATTEND Nurse Practitioner Acute Care
PROC: 0SR902A Replacement of Right Hip Joint with Metal on Polyethylene Synthetic Substitute, Uncemented, Open Approach (ICD-10-PCS; principal; 2018-04-21 07:07)
DX: M16.11 Unilateral primary osteoarthritis, right hip (principal); I10 Essential (primary) hypertension; M35.00 Sjogren syndrome, unspecified; E06.3 Autoimmune thyroiditis; E78.5 Hyperlipidemia, unspecified; E03.9 Hypothyroidism, unspecified; M62.18 Other rupture of muscle (nontraumatic), other site; E66.9 Obesity, unspecified; Z96.653 Presence of artificial knee joint, bilateral; Z79.1 Long term (current) use of non-steroidal anti-inflammatories (NSAID); Z79.899 Other long term (current) drug therapy; Z68.29 Body mass index [BMI] 29.0-29.9, adult

== ENCOUNTER → 2018-08-13 | Outpatient (CLI) | payer MEDICARE ==
--- NOTE | 2018-08-13 13:13 | RAD ---
EXAM DESCRIPTION: Shoulder,Right 2 or More Views CLINICAL HISTORY: 72 years Female, PAIN IN RIGHT SHOULER COMPARISON: None available. FINDINGS: The visualized bones are well-mineralized.No acute fracture or dislocation. The soft tissues appear grossly unremarkable. Severe glenohumeral joint osteoarthritis is noted. IMPRESSION: Severe glenohumeral joint osteoarthritis of the right shoulder. Electronically signed by: Zoë Fuentes MD 08/13/2018 1:12 PM [facility]
== END ==
LOC: RAD 11:39
PROVIDERS: ATTEND Orthopaedic Surgery
DX: M25.511 Pain in right shoulder (principal); M19.011 Primary osteoarthritis, right shoulder

== ENCOUNTER → 2018-09-18 | Outpatient (CLI) | payer MEDICARE ==
--- NOTE | 2018-09-18 15:34 | MRI ---
MRI right shoulder without contrast INDICATION: Shoulder pain osteoarthritis TECHNIQUE: Noncontrast MR imaging right shoulder standard protocol FINDINGS: Mild AC joint osteoarthrosis. Severe [id number] glenohumeral osteoarthrosis with large humeral osteophyte inferior medial and multifocal subchondral cystic change and diffuse grade 4 chondrosis. Diffuse labral degeneration without rupture of the long head bicep. Tendinopathy and moderate chronic interstitial partial tears of the distal supraspinatus and infraspinatus without retraction. Mild subacromial and subdeltoid bursitis. Grade 1-2 marbling throughout the rotator cuff muscle bellies. There is intracapsular tendinopathy of the long head bicep. Mild interstitial partial tear of the bicep tendon without complete rupture or dislocation. High-grade partial tear insertional subscapularis without retraction 890% partial-thickness at the insertion. Mild posterior decentering of the humerus on the axial images related to the arthrosis of the glenohumeral joint. Moderate joint effusion. IMPRESSION: Severe glenohumeral osteoarthrosis Generalized grade 1-2 fatty muscle atrophy/marbling Interstitial tendinosis and mild chronic partial tear long head bicep Partial thickness rotator cuff tears without complete detachment see above discussion Mild subacromial and subdeltoid bursitis with moderate glenohumeral joint fluid Diffuse labral degeneration Electronically signed by: Mason Clemente MD 09/18/2018 3:31 PM [employer]
--- NOTE | 2018-09-18 15:48 | MRI ---
EXAM DESCRIPTION: Cervical Spine: MRI. CLINICAL HISTORY: 72 years Female NECK PAIN COMPARISON: MRI scan of the right shoulder on the same visit. TECHNIQUE: Multiplanar, high-field MRI, multiple sequences, non-contrast Cervical spine. FINDINGS: C2-C3: Minimal disc desiccation. Minimal posterior bulge. Left uncinate spur and left facet arthrosis with moderate narrowing of the neural foramen. Right neuroforamen and canal patent. Right facet joint unremarkable. C3-C4: Disc desiccation and minimal disc space loss. No bulging. Mild bilateral neural foraminal narrowing. Bilateral facet arthrosis. Mild hypertrophy of the flavum ligaments. Mild canal narrowing. C4-C5: Disc desiccation and grade 1 anterolisthesis of 2 mm. Minimal hypertrophy posterior flavum ligaments. Mild canal narrowing. Mild bilateral facet arthrosis and hypertrophy. Mild neural foraminal narrowing. C5-C6: Disc desiccation and grade 1 anterolisthesis 2 mm with moderate disc space loss. Disc bulge abutting the cord. Right side disc osteophyte complex bulging into the foramen and soft tissues with moderate narrowing. Also arthrosis and hypertrophy of the right facet joint. Mild narrowing of the left neural foramen with uncinate spur. C6-C7: Minimal disc space loss and minimal posterior bulge. Minimal uncinate spur on the right. Mild right neural foraminal narrowing. Canal and left neuroforamen are patent. Facet joints are unremarkable. C7-T1: Grade 1 anterolisthesis 2 mm. Desiccation of the disc with tiny posterior bulge. Bilateral facet arthrosis and bilateral mild neural foraminal narrowing. T1-T2: Spondylosis in the disc diffusely with posterior disc bulge. Mild canal narrowing. Bilateral uncinate spur hypertrophy. Bilateral mild to moderate neural foraminal narrowing. Spinal alignment minimal kyphosis lower cervical spine.. No cord compression or cord edema. Atlantoaxial joint minimal hypertrophy.. Base of the cerebellar tonsils is just above the foramen magnum. Paravertebral soft tissues unremarkable. Vertebral bodies are not compressed at any level. Normal marrow signal in the remaining vertebral bodies and the posterior elements. IMPRESSION: 1. Multiple levels of disc desiccation with minimal disc space loss, uncinate spurs, facet arthrosis and hypertrophy, and ligament hypertrophy. Spondylosis T1-T2 and C5-C6 most prominently. 2. Disc osteophyte complex encroaching on the right foramen at C5-6. Correlate for right C6 radiculopathy. Moderate left neural foraminal narrowing at C2-3. Correlate for left C3 radiculopathy. Electronically signed by: Juan Antonio Howard MD 09/18/2018 3:45 PM [facility]
== END ==
LOC: MRI 13:00
PROVIDERS: ATTEND Orthopaedic Surgery
DX: M19.011 Primary osteoarthritis, right shoulder (principal); M75.111 Incomplete rotator cuff tear or rupture of right shoulder, not specified as traumatic; S46.211A Strain of muscle, fascia and tendon of other parts of biceps, right arm, initial encounter; M50.322 Other cervical disc degeneration at C5-C6 level; M75.51 Bursitis of right shoulder; M47.894 Other spondylosis, thoracic region; M25.78 Osteophyte, vertebrae

== ENCOUNTER → 2018-12-28 | Outpatient (CLI) | payer MEDICARE ==
--- NOTE | 2018-12-29 11:16 | CT ---
Study: CT of the Right Shoulder. Indication: OSTEOARTHRITIS OF THE SHOULDER REGION Technique: Axial CT of the right shoulder was performed without contrast. Coronal and sagittal reformats performed. This exam was performed according to our departmental dose-optimization program, which includes automated exposure control, adjustment of the mA and/or kV according to patient size and/or use of iterative reconstruction technique. Comparison: None. Findings: Mild AC joint osteoarthritis. Type I acromion with inferior and lateral downsloping. Rotator cuff tendons not optimally evaluated by nonarthrographic CT technique. Minimal atrophy and grade 1 fatty infiltration throughout the rotator cuff musculature. Severe glenohumeral joint osteoarthritis. Complete joint space loss with pronounced cortical remodeling of both articular surfaces and large inferior humeral head osteophyte formation. Multifocal subcortical cystic change throughout the anterior inferior glenoid rim with prominent anterior joint line osteophyte formation. No signal loss of glenoid surface area. Moderate size joint effusion noted. Minimal truncation posterior glenoid rim. Extensive atherosclerosis. Degenerative changes of the spine noted. Emphysema. Impression: Severe right glenohumeral joint osteoarthritis with a moderate size joint effusion. Mild AC joint osteoarthritis. Minimal atrophy and grade 1 fatty infiltration rotator cuff musculature. Electronically signed by: John Castaneda MD 12/29/2018 11:14 AM CDT
== END ==
LOC: CT 10:36
PROVIDERS: ATTEND Orthopaedic Surgery
DX: Z01.818 Encounter for other preprocedural examination (principal); M19.011 Primary osteoarthritis, right shoulder; M62.511 Muscle wasting and atrophy, not elsewhere classified, right shoulder

== ENCOUNTER → 2018-12-29 | Outpatient (CLI) | payer MEDICARE ==
--- NOTE | 2018-12-29 12:05 | RAD ---
EXAM DESCRIPTION: Chest,2 Views CLINICAL HISTORY: Pre-Op COMPARISON: Previous study April 20, 2018 TECHNIQUE: PA/lateral FINDINGS: There is no acute appearing cardiac or pulmonary abnormality. Heart size is normal with normal pulmonary vascularity. No pleural effusion or pneumothorax. Lungs are clear with no consolidating infiltrate. Lateral view shows intact sternum and T-spine. IMPRESSION: No acute process is identified in the chest. Electronically signed by: Sean Crowe MD 12/29/2018 12:03 PM CDT
== END ==
LOC: LAB.O 10:29
PROVIDERS: ATTEND Nurse Practitioner Family
DX: Z01.818 Encounter for other preprocedural examination (principal); M12.811 Other specific arthropathies, not elsewhere classified, right shoulder

== ENCOUNTER → 2019-01-27 | Day surgery (SDC) | payer MEDICARE ==
--- NOTE | 2019-01-19 13:33 | HP ---
CHIEF COMPLAINT: Shoulder pain. HISTORY OF PRESENT ILLNESS: Fabiola is a 73-year-old female with a history of pain in the shoulder that has been getting progressively worse over the years. She has now become very limited in her use of the shoulder. There was never any trauma associated with this. She only has radiation of the pain to the deltoid, but has sharp pains with range of motion and a dull, aching pain on a continual basis. She has difficulty sleeping and also with activity secondary to the pain. MRI and x-rays show severe arthritis. Because of the presence of the arthritis and failure of cerumen, she has requested operative intervention. After discussing the risks, benefits and alternatives to that, she has given informed consent for total shoulder arthroplasty. PAST SURGICAL HISTORY: 1. Bilateral total knee arthroplasty. 2. Total hip arthroplasty. MEDICATIONS: 1. Potassium. 2. PreserVision. 3. Biotin. 4. Multiple vitamins. ALLERGIES: MORPHINE. CODE STATUS: Full code. IMMUNIZATIONS: Up to date. SOCIAL HISTORY: The patient does not smoke or use any illicit drugs. She does drink on occasion. FAMILY HISTORY: None pertinent to today's complaint. REVIEW OF SYSTEMS: Negative except as indicated in the History of Present Illness. PHYSICAL EXAMINATION: VITAL SIGNS: Blood pressure 135/90. Pulse 66. Height 5'7". Weight 198 pounds. MENTAL STATUS: The patient is awake, alert, and is able to give a good history and participate in the physical. The patient is oriented to person, place and time. SKIN: Normal tone and turgor. HEENT: Normocephalic, atraumatic. Pupils equal, round and reactive. Mucosal membranes are moist. NECK: Normal range of motion. No thyromegaly, no lymphadenopathy. CHEST: Normal respiratory excursion. CARDIAC: Regular rate and rhythm. No murmurs, rubs or gallops. MUSCULOSKELETAL: The bilateral lower extremities show normal range of motion without pain. Sensation is intact in the extremities and they are warm and well perfused. There is no malalignment and leg lengths are equal. Strength is 5/5. She walks with a normal gait. The left upper extremity shows no significant pain with range of motion of the shoulder, elbow, wrist and digits. Strength is 5/5 throughout the extremity. Sensation is intact throughout the extremity. It is warm and well perfused. She has no malalignment. The right shoulder shows severe pain with any range of motion and only about 95 degrees of abduction. Sensation is intact in the extremity. She has full range of motion of the elbow, wrist and digits. Sensation is intact also on the lateral aspect of the deltoid. She has severe pain with resisted abduction and forward flexion. She has decreased strength relative to the contralateral side secondary to pain. She has negative belly press. IMAGING: X-rays show severe arthritis. MRI does confirm that. There is slight retroversion of the glenoid. ASSESSMENT: 1. Endstage arthritis. PLAN: The plan at this point is for total shoulder arthroplasty. We have discussed the risks, benefits, and alternatives to that and the patient has given informed consent. [facility][id number] [facility]
== END ==
LOC: AMB 07:00
PROVIDERS: ATTEND Orthopaedic Surgery
DX: Z01.812 Encounter for preprocedural laboratory examination (principal); Z53.9 Procedure and treatment not carried out, unspecified reason

== ENCOUNTER → 2019-02-17 | Outpatient (CLI) | payer MEDICARE ==
--- NOTE | 2019-02-17 19:17 | US ---
EXAM DESCRIPTION: Venous,Lower Extremity LT: ULTRASOUND. CLINICAL HISTORY: LOCALIZED EDEMA COMPARISON: None Available. TECHNIQUE: Castillo-scale and doppler sonographic evaluation of the deep venous system of the left lower extremity. FINDINGS: Doppler evaluation shows normal color flow and normal phasicity and augmentation of the left common femoral vein, femoral vein, popliteal vein, greater saphenous vein, peroneal, and posterior tibial vein. The left lower extremity deep veins were completely compressible; normal occlusion with transducer pressure. Castillo-scale survey showed no echogenic thrombus within these veins. Localized edema in the left calf. IMPRESSION: 1. Duplex ultrasound evaluation of the left lower extremity deep venous system showing no evidence of thrombosis. 2. Localized edema in the left calf. Electronically signed by: Juan Antonio Howard MD 02/17/2019 7:15 PM CDT
== END ==
LOC: US 15:49
PROVIDERS: ATTEND Nurse Practitioner Family
DX: R60.0 Localized edema (principal)

== ENCOUNTER 2019-03-05 05:31 | Inpatient (IN) | payer MEDICARE ==
--- NOTE | 2019-03-04 13:25 | HP ---
CHIEF COMPLAINT: Right shoulder pain. HISTORY OF PRESENT ILLNESS: Ms. Muro is a 73-year-old female with a history of pain in the shoulder that has been getting progressively worse over the years. She has become very limited in the use of her shoulder secondary to the pain. It has become constant and now she has requested operative intervention. Given the findings of severe osteoarthritis, shoulder replacement is indicated. The pain that she has radiates to a 10, is sharp in nature, but there is no focal radiation of the pain. After discussing the risks, benefits and alternatives to operative therapy, she has given informed consent. PAST SURGICAL HISTORY: 1. Bilateral total knee arthroplasty. 2. Total hip arthroplasty. MEDICATIONS: 1. Potassium. 2. PreserVision. 3. Biotin. ALLERGIES: MORPHINE. CODE STATUS: Full code. IMMUNIZATIONS: Up to date. SOCIAL HISTORY: The patient does not smoke or use any illicit drugs. She does drink on occasion. FAMILY HISTORY: None pertinent to today's complaint. REVIEW OF SYSTEMS: Negative except as indicated in the History of Present Illness. PHYSICAL EXAMINATION: VITAL SIGNS: Blood pressure 158/95. Pulse 82. Height 5'7". Weight 198 pounds. MENTAL STATUS: The patient is awake, alert, and is able to give a good history and participate in the physical. The patient is oriented to person, place and time. SKIN: Normal tone and turgor. HEENT: Normocephalic, atraumatic. Pupils equal, round and reactive. Mucosal membranes are moist. NECK: Normal range of motion. No thyromegaly, no lymphadenopathy. CHEST: Normal respiratory excursion. CARDIAC: Regular rate and rhythm. No murmurs, rubs or gallops. MUSCULOSKELETAL: The bilateral lower extremities show full active range of motion without pain. She has intact sensation throughout the extremities. They are warm and well perfused and there is no deformity. She has no malalignment. The left upper extremity shows full active abduction and full forward flexion without significant discomfort. She has intact sensation. Strength is 5/5. There is no crepitus with range of motion. The right upper extremity shows severe limitation in range of motion today to about 80 degrees of abduction. Forward flexion is to about 95 degrees. Dredge Mate strength is 5/5. Sensation is intact over the deltoid and the deltoid is actively firing. She has crepitus through her range of motion. She has very minimal extension of the shoulder just passed the plane of the body. IMAGING: X-rays show severe arthritis. ASSESSMENT: 1. Arthritis. PLAN: The plan at this point is for total shoulder arthroplasty. We have discussed the risks, benefits, and alternatives to that and the patient has given informed consent. [facility][id number] [facility]
[2019-03-05] MEDS ORDERED: CLINDAMYCIN IV 900MG 50 ML IVPB ONE (08:33)
[2019-03-05] MEDS ORDERED: BUPIVACAINE LIPOSOME 13.3 MG/ML VIAL INJ ONE ×2 (08:36→08:55)
[2019-03-05] MEDS ORDERED: BUPIVACAINE 0.5% 30 ML VIAL INJ ONE ×2 (08:36→08:55)
[2019-03-05] MEDS ORDERED: SODIUM CHL 0.9% 100ML MINI-BAG 100 ML IVPB ONE (08:46)
[2019-03-05] MEDS ORDERED: TRANEXAMIC ACID 1,000 MG/10 ML VIAL ONE (08:46)
[2019-03-05] MEDS ORDERED: VANCOMYCIN HCL INJ 1,000 MG VIAL IVPB ONE ×2 (08:46→17:33)
[2019-03-05] MEDS ORDERED: LACTATED RINGERS 1,000 ML ONE ×2 (08:46→13:44)
[2019-03-05] MEDS ORDERED: SODIUM CHLORIDE 0.9% 100ML 100 ML IVPB ONE (08:47)
[2019-03-05] MEDS ORDERED: ceFAZolin SODIUM 1 GM VIAL ONE ×2 (08:47→12:52)
[2019-03-05] MEDS ORDERED: SODIUM CHLORIDE 0.9% 250ML 250 ML ONE ×2 (08:47→17:32)
[2019-03-05] MEDS ORDERED: ACETAMINOPHEN IV 1000MG 100 ML ONE (08:52)
[2019-03-05] MEDS ORDERED: MIDAZOLAM INJ 5 MG/5 ML VIAL ONE (08:52)
[2019-03-05] MEDS ORDERED: fentaNYL CITRATE INJ 50 MCG/ML AMP ONE (08:52)
[2019-03-05] MEDS ORDERED: ROCURONIUM BROMIDE 10 MG/ML VIAL ONE (08:52)
[2019-03-05] MEDS ORDERED: raNITIdine HCL INJ 25 MG/ML VIAL IV ONE (10:00)
[2019-03-05] MEDS ORDERED: ePHEDrine SULF 50 MG/ML IV ONE (10:00)
[2019-03-05] MEDS ORDERED: LIDOCAINE 1% 10 ML VIAL INJ ONE (10:00)
[2019-03-05] MEDS ORDERED: DEXAMETHASONE INJ 10 MG/ML VIAL IV ONE (10:00)
[2019-03-05] MEDS ORDERED: PROPOFOL 200 MG/20 ML VIAL IV ONE (10:00)
[2019-03-05] MEDS ORDERED: KETAMINE HCL 50 MG/ML SYG IV ONE (10:04)
[2019-03-05] MEDS: VANCOMYCIN HCL INJ 1,000 MG VIAL IVPB ONE ×2 (11:09→13:06)
[2019-03-05] MEDS ORDERED: CLINDAMYCIN IV 900 MG/50 ML BAG IVPB ONE (11:10)
[2019-03-05] MEDS ORDERED: MORPHINE SULFATE INJ 10 MG/ML VIAL IV PRN (12:56)
[2019-03-05] MEDS ORDERED: ZOLPIDEM TARTRATE 5 MG TAB PO PRN (12:56)
[2019-03-05] MEDS ORDERED: BISACODYL SUPPOSITORY 10 MG PR PRN (12:56)
[2019-03-05] MEDS ORDERED: PROMETHAZINE HCL INJ 12.5 MG in SODIUM CHLORIDE 0.9% 50ML 50 ML IVPB PRN (12:56)
[2019-03-05] MEDS ORDERED: NALOXONE HCL INJ 0.4 MG/ML VIAL IV PRN (12:56)
[2019-03-05] MEDS ORDERED: ALUMINUM & MAGNESIUM HYDROXIDE 30 ML UD PO PRN (12:56)
[2019-03-05] MEDS ORDERED: TEMAZEPAM 15 MG CAP PO PRN (12:56)
[2019-03-05] MEDS ORDERED: BENZOCAINE-MENTH LOZ (CEPACOL) 1 EA LOZ MT PRN (12:56)
[2019-03-05] MEDS ORDERED: MORPHINE SULFATE INJ 10 MG/ML VIAL IM PRN (12:56)
[2019-03-05] MEDS ORDERED: CYCLOBENZAPRINE HCL 10 MG TAB PO PRN (12:56)
[2019-03-05] MEDS ORDERED: ONDANSETRON INJ 4 MG/2 ML VIAL IV PRN (12:56)
[2019-03-05] MEDS ORDERED: PROMETHAZINE HCL INJ 25 MG in SODIUM CHLORIDE 0.9% 50ML 50 ML IVPB PRN (12:56)
[2019-03-05] MEDS ORDERED: DEX 5% W/NACL 0.45% 1000ML 1,000 ML IVS PRN (12:56)
[2019-03-05] MEDS ORDERED: SODIUM CHLORIDE 0.9% (FLUSH) 10 ML SYG IV PRN (12:56)
[2019-03-05] MEDS ORDERED: traMADol HCL 50 MG TAB PO PRN (12:56)
[2019-03-05] MEDS ORDERED: ACETAMINOPHEN 500 MG TAB PO PRN (12:56)
[2019-03-05] MEDS ORDERED: MAGNESIUM HYDROXIDE 30 ML UD PO PRN (12:56)
[2019-03-05] MEDS ORDERED: TRANEXAMIC ACID INJ 1,000 MG in SODIUM CHLORIDE 0.9% 100ML 100 ML IVPB ONE (12:56)
[2019-03-05] MEDS ORDERED: IV SET AND CAP CHANGE INJ INJ SCH (13:00)
[2019-03-05] MEDS ORDERED: MORPHINE PCA 1 MG/ML 100 ML BAG IVPB SCH (13:00)
--- NOTE | 2019-03-05 14:37 | RAD ---
Study: Frontal View Right Shoulder Indication: post op Impression: Postsurgical changes of reverse right total shoulder arthroplasty noted without complicating features. Electronically signed by: John Castaneda MD 03/05/2019 2:35 PM CDT
[2019-03-05] MEDS ORDERED: ceFAZolin SODIUM 2 GRAMS PREMI 50 ML IVPB ONE ×2 (16:35→20:01)
[2019-03-05] MEDS: ceFAZolin SODIUM 2 GRAMS PREMI 2 GM in PREMIX BAG 1 BAG IVPB SCH ×2 (16:39→23:41)
[2019-03-05] MEDS: CELECOXIB 100 MG CAP PO SCH (17:10)
[2019-03-05] MEDS: VANCOMYCIN HCL INJ 1,000 MG in SODIUM CHLORIDE 0.9% 250ML 250 ML IVPB SCH (17:51)
[2019-03-05] MEDS: CLINDAMYCIN INJ (VIAL) 300 MG in SODIUM CHLORIDE 0.9% 50ML 50 ML IVPB SCH ×2 (18:27→20:29)
--- NOTE | 2019-03-05 19:45 | PN ---
DATE: 03/05/19 POSTOPERATIVE NOTE SUBJECTIVE: She is doing well and she has no pain. OBJECTIVE: She is afebrile. Vital signs are stable. Dressing is clean, dry and intact. ASSESSMENT: 1. Status post total shoulder arthroplasty. PLAN: The plan at this point is for her to begin some gentle range of motion on postoperative day 1. #[id number] [facility]
[2019-03-05] MEDS ORDERED: SODIUM CHLORIDE 0.9% 50ML 50 ML ONE (20:01)
[2019-03-05] MEDS ORDERED: CLINDAMYCIN PHOSPHATE 150 MG/ML VIAL ONE (20:01)
[2019-03-05] MEDS ORDERED: ENOXAPARIN SODIUM 30 MG/0.3 ML SYG SUBCU ONE (20:01)
[2019-03-05] MEDS: DOCUSATE CALCIUM 240 MG CAP PO SCH ×2 (20:29→20:38)
[2019-03-05] MEDS ORDERED: ENOXAPARIN SODIUM 30 MG/0.3 ML SYG SUBCU SCH (23:00)
[2019-03-06] MEDS: ENOXAPARIN SODIUM 30 MG/0.3 ML SYG SUBCU SCH ×2 (03:00→15:29)
[2019-03-06] MEDS ORDERED: CLINDAMYCIN PHOSPHATE 150 MG/ML VIAL ONE ×4 (04:31→19:28)
[2019-03-06] MEDS ORDERED: SODIUM CHLORIDE 0.9% 50ML 50 ML ONE ×4 (04:31→19:28)
[2019-03-06] MEDS ORDERED: SODIUM CHLORIDE 0.9% 250ML 250 ML ONE ×3 (04:32→19:25)
[2019-03-06] MEDS ORDERED: VANCOMYCIN HCL INJ 1,000 MG VIAL IVPB ONE ×3 (04:32→19:26)
[2019-03-06] MEDS: CLINDAMYCIN INJ (VIAL) 300 MG in SODIUM CHLORIDE 0.9% 50ML 50 ML IVPB SCH ×3 (04:35→20:36)
[2019-03-06] MEDS: VANCOMYCIN HCL INJ 1,000 MG in SODIUM CHLORIDE 0.9% 250ML 250 ML IVPB SCH ×2 (05:29→17:38)
[2019-03-06] MEDS: CELECOXIB 100 MG CAP PO SCH ×2 (07:21→17:39)
[2019-03-06] MEDS ORDERED: ceFAZolin SODIUM 2 GRAMS PREMI 50 ML IVPB ONE ×3 (07:31→19:26)
[2019-03-06] MEDS: ceFAZolin SODIUM 2 GRAMS PREMI 2 GM in PREMIX BAG 1 BAG IVPB SCH ×2 (08:30→15:29)
[2019-03-06] MEDS: MAGNESIUM OXIDE 400 MG TAB PO SCH (08:31)
[2019-03-06] MEDS: ACETAMINOPHEN 325 MG TAB PO PRN (10:28)
[2019-03-06] MEDS ORDERED: THYROID 90 MG PO SCH (10:36)
[2019-03-06] MEDS ORDERED: BUPROPION HCL 300 MG PO SCH (10:45)
[2019-03-06] MEDS ORDERED: Wellbutrin 100 MG TAB ONE (10:46)
[2019-03-06] MEDS ORDERED: THYROID 60 MG TAB PO ONE ×2 (10:47→19:25)
[2019-03-06] MEDS: METOPROLOL SUCCINATE XL 50 MG TAB PO SCH (10:59)
--- NOTE | 2019-03-06 11:17 | CONS ---
SUPERVISING PHYSICIAN: Luis Rosenberg MD REFERRING PHYSICIAN: Uvaldo Foss MD REASON FOR CONSULTATION: Postoperative care status post right total shoulder replacement. HISTORY OF PRESENT ILLNESS: Ms. Muro is a 73 year-old female patient with a longstanding history of shoulder pain that had been worsening over the last year. The pain was very limited in the use of her shoulder. The discomfort and pain had become constant to the point that she was requesting operative intervention. It was noted that she had severe osteoarthritis of the shoulder and at that point per Dr. Foss, replacement was indicated. She was reported that the pain was radiating to a 10 but no focal radiation of the pain. She was admitted today for elective total right shoulder replacement. She was seen in the immediate postoperative state in stable condition. PAST MEDICAL HISTORY: 1. Hypertension. 2. Hyperlipidemia. 3. [place] thyroiditis. 4. Sjogren's disease. 5. Severe arthritis of the shoulders. PAST SURGICAL HISTORY: 1. Bilateral total knee replacement. 2. Laminectomy. 3. Hysterectomy. 4. Total right hip arthroplasty. 5. Breast augmentation. 6. Splenectomy. CURRENT MEDICATIONS: 1. Multivitamins 1 tablet twice a day. 2. Lipitor 40 mg at bedtime. 3. Gabapentin 300 mg t.i.d. 4. Bupropion 300 mcg daily. 5. Metoprolol 50 mg daily. 6. Vitamin A and D with K, one daily. 7. [place] Thyroid 90 mg daily. ALLERGIES: NO KNOWN DRUG ALLERGIES. FAMILY HISTORY: Positive for hypertension. SOCIAL HISTORY: The patient is , lives in [place], [place]. She is retired. She does not drink, smoke or utilize any illicit drugs. REVIEW OF SYSTEMS: CONSTITUTIONAL: Denies any fevers, chills or unintentional weight loss. HEENT: Denies headaches, visual change or sore throat. CARDIOVASCULAR: Denies chest pain or palpitations, syncopal episodes. RESPIRATORY: Negative for cough, wheezing or shortness of breath. GASTROINTESTINAL: Denies nausea or vomiting, diarrhea, constipation or abdominal pain. GENITOURINARY: Denies dysuria, hematuria, polyuria. MUSCULOSKELETAL: Negative for easy bruising or transfusion reaction. Positive for right shoulder pain as noted in the history of present illness. NEUROLOGICAL: Negative for syncope, paresthesias, seizures, ataxia, no obvious deficits. PHYSICAL EXAMINATION: VITAL SIGNS: Temperature 97,8, pulse 78, blood pressure 120/75, respirations 16, oxygen saturation 93% on room air. Admission weight 90.7 kg. GENERAL: The patient appears to be resting comfortably and in no acute distress. She is alert. HEENT: Tympanic membranes clear bilaterally. Oropharynx pink, moist without any lesions. NECK: Supple, non-tender, full range of motion. No jugular venous distention. CHEST: Clear to auscultation bilaterally. HEART: Regular rate and rhythm without appreciable murmurs, rubs, or gallops. ABDOMEN: Soft, non-tender, positive bowel sounds. EXTREMITIES: Large dressing in place over the right shoulder with the arm being in a sling. Pulses strong, NEUROLOGIC: She is alert and oriented x 3. LABORATORY: Postoperative hemoglobin and hematocrit pending. Preoperative hemoglobin 13.8. Chemistries showed normal electrolytes with creatinine 0.72. Urine was within normal limits. Toxicology screen showed negative for any substances tested. RADIOLOGY: Postoperative shoulder x-ray per radiology interpretation shows postsurgical changes of reverse right total shoulder arthroplasty without any complicating features ASSESSMENT: 1. Postoperative day zero for total right shoulder arthroplasty having failed to respond outpatient treatment measures. 2. History of hypertension. 3. Hyperlipidemia. 4. [place] thyroiditis. 5. Sjogren's disease. PLAN: The patient will be followed as she progresses through her physical therapy and rehabilitation in the recovery phase. Anticipate discharge probably on Friday to continue with physical therapy on Friday. Will review her medications and resume those as appropriate. She is on DVT prophylaxis per protocol. Will anticipate her length of stay to be 2 to 3 days. Will defer orthopedic management to Dr. Foss and physical therapy. Until she can transition to outpatient management, we will continue to monitor and treat as needed. [facility][id number] [facility]
[2019-03-06] MEDS: Wellbutrin XL 150 MG TAB PO SCH (11:34)
--- NOTE | 2019-03-06 12:35 | OP ---
PREOPERATIVE DIAGNOSIS: Endstage arthritis of the shoulder. POSTOPERATIVE DIAGNOSIS: Endstage arthritis of the shoulder. PROCEDURE: Shoulder arthroplasty. SURGEON: Uvaldo Foss MD PARK INTERPRETER: Juan Antonio Solorio CST, SA-C ANESTHESIA: General. COMPLICATIONS: None. FINDINGS: 1. Severe osteoarthritis. 2. Rupture of rotator cuff tendon. INDICATION: Ms. Muro has a long history of severe shoulder pain. Ms. Muro has had difficulty with daily activities because of the pain. As such, she has requested operative intervention. After discussing the risks, benefits, and alternatives to operative therapy. she has giving informed consent for that. PROCEDURE: The patient was brought to the Operating Room and placed in the supine position. General anesthesia was induced and the patient was transitioned into the beach chair position. Following that, the arm and shoulder were sterilely prepped and draped. The standard deltopectoral approach was used to the shoulder and the clavipectoral fascia was identified and incised. The rotator cuff was identified and the subscapularis was taken down. The biceps tendon was identified and tagged. Identification of the axillary nerve was made and it was protected throughout the entirety of the case. The anterior capsule of the humerus was dissected and large osteophytes were removed. The arm was externally rotated and the humeral head was exposed. The humeral neck cut was made and following that, trial weaning was used, a size 13 trial stem and broach were found to be stable. The broach was in place and the glenoid was exposed. A guidewire placed in the inferior-central portion of the glenoid using the Fision system. A reamer was used to obtain bleeding bone, especially at the most inferior portion. The baseplate was applied and the central screw was placed. The peripheral screws were sequentially placed. The baseplate was firmly in place and the glenosphere was impacted. Following that, a trial cup was placed followed by reduction. After the shoulder was reduced, it was taken through a range of motion. There did not appear to be any impingement and there was no impending dislocation. The tension seemed appropriate. Following the trial, the trial components were removed. The shoulder was very thoroughly irrigated and the final components were impacted into place. The shoulder was reduced and taken through a range of motion. There did not appear to be any evidence of impingement or pending dislocation. The wound was thoroughly irrigated and the deltopectoral interval was reapproximated. The skin was closed with a combination of running and interrupted subcuticular stitches. Sterile dressings were placed, the arm was placed in a sling, and the patient was awoken from anesthesia and taken to Recovery. POSTOPERATIVE INSTRUCTIONS: She can begin gentle range of motion on postoperative day #1. COMPONENTS: Chavo Reunion Shoulder, size #32 glenosphere, size #13 stem, 28 mm center screw, 32,32,16 and 36 mm peripheral screws #[id number] [facility]
[2019-03-06] MEDS: GABAPENTIN 300 MG CAP PO SCH ×2 (15:28→20:37)
--- NOTE | 2019-03-06 16:34 | PN ---
DATE: 03/06/19 SUPERVISING PHYSICIAN: Luis Rosenberg M.D. SUBJECTIVE: The patient is sitting up in her chair in her room. Her is at the bedside. She has no complaints of shortness of breath or chest pain. She feels like she is progressing well with her shoulder. Denies nausea and vomiting. OBJECTIVE: VITAL SIGNS: Temperature 97.9, heart rate 70, blood pressure 108/74, respiratory rate 17, O2 sat 96% on 2 liters nasal cannula. RESPIRATORY: Essentially clear to auscultation bilaterally. CARDIAC: Regular rate and rhythm. ABDOMEN: Soft, nondistended, non-tender. Bowel sounds are positive. EXTREMITIES: The pulse on her right radial is at +2, her left pulse is +2. She has a strong blender laborer with good capillary refill. NEUROLOGIC: She is awake, alert and oriented times three. LABORATORY: Hemoglobin and hematocrit is 11.4 and 33.5. All other labs and films have been reviewed via the EMR. ASSESSMENT: 1. Osteoarthritis of the right shoulder status post right total shoulder. Postoperative day #1. 2. Hyperlipidemia. 3. Depression. 4. Neuropathy. 5. Hypothyroidism. PLAN: We will continue present supportive care. Orthopedic issues will be per Dr. Uvaldo Foss, orthopedic surgeon. She will continue her physical therapy for strengthening and conditioning. Hopefully she can be discharged tomorrow. I have restarted her home medications. Will continue to monitor her closely and follow as needed. [id number] [facility]
[2019-03-06] MEDS: HYDROcodone 5MG/APAP 325MG 1 EA TAB PO PRN (19:37)
[2019-03-06] MEDS: DOCUSATE CALCIUM 240 MG CAP PO SCH (20:37)
[2019-03-06] MEDS: SODIUM CHLORIDE 0.9% (FLUSH) 10 ML SYG IV SCH (20:37)
[2019-03-06] MEDS ORDERED: ATORVASTATIN 20 MG TAB PO SCH (21:00)
[2019-03-07] MEDS: ceFAZolin SODIUM 2 GRAMS PREMI 2 GM in PREMIX BAG 1 BAG IVPB SCH ×2 (00:13→07:44)
[2019-03-07] MEDS: ENOXAPARIN SODIUM 30 MG/0.3 ML SYG SUBCU SCH (03:13)
[2019-03-07] MEDS: HYDROcodone 5MG/APAP 325MG 1 EA TAB PO PRN (04:18)
[2019-03-07] MEDS: ALBUTEROL SULFATE 2.5 MG/3 ML VIAL NEB PRN ×2 (04:35→09:22)
[2019-03-07] MEDS: CLINDAMYCIN INJ (VIAL) 300 MG in SODIUM CHLORIDE 0.9% 50ML 50 ML IVPB SCH ×2 (04:51→13:38)
[2019-03-07] MEDS: VANCOMYCIN HCL INJ 1,000 MG in SODIUM CHLORIDE 0.9% 250ML 250 ML IVPB SCH (06:14)
[2019-03-07] MEDS ORDERED: THYROID 60 MG TAB PO SCH (06:30)
[2019-03-07] MEDS ORDERED: ceFAZolin SODIUM 2 GRAMS PREMI 50 ML IVPB ONE (07:12)
[2019-03-07] MEDS: CELECOXIB 100 MG CAP PO SCH (07:44)
[2019-03-07] MEDS: ACETAMINOPHEN 325 MG TAB PO PRN (09:14)
[2019-03-07] MEDS: GABAPENTIN 300 MG CAP PO SCH (09:16)
[2019-03-07] MEDS: METOPROLOL SUCCINATE XL 50 MG TAB PO SCH (09:16)
[2019-03-07] MEDS: Wellbutrin XL 150 MG TAB PO SCH (09:16)
[2019-03-07] MEDS: MAGNESIUM OXIDE 400 MG TAB PO SCH (09:16)
[2019-03-07] MEDS: SODIUM CHLORIDE 0.9% (FLUSH) 10 ML SYG IV SCH (09:17)
[2019-03-07 13:20] VITALS: BP 120/68; TEMP 98; O2SAT 94
--- NOTE | 2019-03-07 16:02 | PN ---
DATE: 03/06/19 POSTOPERATIVE DAY 1 SUBJECTIVE: She is doing really well and her pain is actually better than before surgery. OBJECTIVE: She is afebrile. Vital signs are stable. Dressing is clean, dry and intact. ASSESSMENT: 1. Status post total shoulder arthroplasty. PLAN: The plan at this point is to allow her to do some gentle passive and active range of motion. [id number]
--- NOTE | 2019-03-07 16:04 | PN ---
DATE: 03/07/19 SUBJECTIVE: She is doing well and she is out of her sling. She has been doing some gentle motion on her own. OBJECTIVE: She is afebrile. Vital signs are stable. Wound is clean. There are no signs or symptoms of infection. ASSESSMENT: 1. Status post total shoulder arthroplasty. PLAN: The plan today is for discharge. She will be in physical therapy on an outpatient basis. She will followup with us in about 2 weeks. She has been instructed to return immediately should any change in her condition occur. #[id number] [facility]
--- NOTE | 2019-03-08 08:52 | DS ---
SUPERVISING PHYSICIAN: Luis Rosenberg MD DISCHARGE DIAGNOSIS: 1. Osteoarthritis of the right shoulder status post right total shoulder replacement performed by Dr. Uvaldo Foss, orthopedic surgeon, postoperative day #2. 2. Hyperlipidemia. 3. Depression. 4. Neuropathy. 5. Hypothyroidism. HISTORY OF PRESENT ILLNESS This is a 73-year-old female patient who was admitted to the hospital on 03/05/19 after a longstanding history of shoulder pain that had been worsening over the past year. It limited in the use of her shoulder. The discomfort and pain had become constant to the point that she requested Dr. Uvaldo Foss, orthopedic surgeon, for operative intervention. She was admitted to the hospital and had total right shoulder replacement. She had no problems intraoperatively. The patient was admitted to the Medical/Surgical Floor postoperatively in stable condition. HOSPITAL COURSE: The patient had no problems postoperatively. She continued with her physical therapy for strengthening and conditioning. Her home medications were restarted. Today, Dr. Foss changed her dressing and she has progressed to the point where she can be discharged home in stable condition. LABORATORY: CBC on admission was unremarkable and her followup H&H was hemoglobin 11.4 and hematocrit 33.5. Her chemistries are within normal limits with a slightly elevated BUN at 20. Urinalysis was negative. Her urine drug screen was also negative. RADIOLOGY: As per the history of present illness. DISCHARGE PLAN: The patient will be discharged in stable condition. She lives in [place]. She will continue with [facility] [facility] at the [facility]. She is to followup with Dr. Uvaldo Foss within 1 to 2 weeks. She is to increase her activity as per physical therapy and resume her previous diet as well as her previous medications. In addition to her previous medications, she will have some cyclobenzaprine as well as some hydrocodone. She is to call Dr. Foss's office or return to the hospital for any problems or complications. DISCHARGE MEDICATIONS: 1. Vitamin A, D, K. 2. [place]long Thyroid. 3. Bupropion. 4. Lipitor. 5. Multivitamin with minerals. 6. Metoprolol. 7. Gabapentin. 8. Cyclobenzaprine. 9. Hydrocodone. #[id number] [facility]
== END 2019-03-07 14:30 | disposition home or self-care (01) | DRG 483 ==
LOC: AMB 05:31 → MS 15:11
PROVIDERS: ADMIT Orthopaedic Surgery; ATTEND Nurse Practitioner Acute Care
PROC: 3E0T3BZ Introduction of Anesthetic Agent into Peripheral Nerves and Plexi, Percutaneous Approach (ICD-10-PCS; 2019-03-05)
PROC: 0RRJ0JZ Replacement of Right Shoulder Joint with Synthetic Substitute, Open Approach (ICD-10-PCS; principal; 2019-03-05 07:00)
DX: M19.011 Primary osteoarthritis, right shoulder (principal); I10 Essential (primary) hypertension; E78.5 Hyperlipidemia, unspecified; E06.3 Autoimmune thyroiditis; M35.00 Sjogren syndrome, unspecified; Z96.653 Presence of artificial knee joint, bilateral; Z96.641 Presence of right artificial hip joint; F32.9 Major depressive disorder, single episode, unspecified; G62.9 Polyneuropathy, unspecified; E03.9 Hypothyroidism, unspecified; Z88.5 Allergy status to narcotic agent; Z79.899 Other long term (current) drug therapy

== ENCOUNTER 2019-08-09 08:29 | Emergency (ER) | payer MEDICARE ==
--- NOTE | 2019-08-09 09:07 | CT ---
EXAM DESCRIPTION: Head CLINICAL HISTORY: sensation of rt sided weakness 6.5 hrs COMPARISON: None TECHNIQUE: Noncontrast transaxial CT images of the head are obtained from base to vertex. This exam was performed according to our departmental dose-optimization program, which includes automated exposure control, adjustment of the mA and/or kV according to patient size and/or use of iterative reconstruction technique. FINDINGS: The midline structures are not displaced. Sulci are age-appropriate. Cavum septum pellucidum et vergae. There are areas of decreased attenuation in the periventricular white matter and the white matter of the centrum semiovale. There is no evidence of mass, mass-effect, hydrocephalus, or acute intracranial hemorrhage. No abnormal extra axial fluid collection is seen. Bone windows show no evidence of depressed skull fracture. Moderate calcifications of the intracranial carotid arteries. The visualized paranasal sinuses are unremarkable. IMPRESSION: 1. Age-appropriate atrophy with evidence of old small vessel ischemic type changes seen. 2. No acute abnormality is seen on noncontrast CT of the head. Electronically signed by: Negrito Rodgers MD 08/09/2019 9:06 AM [facility]
--- NOTE | 2019-08-09 09:11 | RAD ---
Procedure: XR CHEST 1 VIEW Exam Date: 08/09/2019 Ordering Provider: Avelino Loyd Clinical Indication: sensation of rt sided weakness 6.5 hrs Comparison: 12/29/2018 Findings: Cardiomediastinal silhouette is within normal limits. Aortic calcification. No focal lung consolidation. No pleural effusion. No pneumothorax. No acute osseous abnormality. Reverse right shoulder arthroplasty. Impression: 1. No acute abnormality in the chest. Electronically signed by: Steven Hines MD 08/09/2019 9:09 AM [employer]
[2019-08-09] MEDS ORDERED: ASPIRIN TABLET 325 MG TAB PO ONE (09:29)
--- NOTE | 2019-08-09 10:28 | ED.PDOC ---
History of Present Illness - General Chief Complaint: Neuro Symptoms/Deficits Stated Complaint: R leg/ R arm weakness Time Seen by Provider: 08/09/19 08:36 Source: patient, family Exam Limitations: no limitations - History of Present Illness Initial Comments: the patient is a 73-year-old female presenting to the emergency room secondary to right upper and lower extremity ataxia. She describes it as weakness but I see no evidence of any weakness when comparing both sides. She does have a chronic right shoulder deficit due to arthritis. No facial droop. No speech issues. No swallowing issues. No nystagmus. No real dizziness. No hearing deficits. No visual deficits. No sydnie-neglect. She is alert and responsive and in no distress. She is right-hand dominant. She does have an abnormal finger to nose and heel to ortiz tests. Her gait is significantly unsteady which it is not normally. The last known normal was last night around 10 or 11. She noticed the right upper extremity and lower extremity ataxia at around 2 AM when she got up to go to the bathroom. She presented here around 9 this morning Severity: mild Improving Factors: nothing Worsening Factors: nothing Associated Symptoms: denies symptoms Allergies/Adverse Reactions: Allergies NO KNOWN ALLERGY Allergy (Verified 03/05/19 17:02) Home Medications: Ambulatory Orders Atorvastatin Calcium [Lipitor] 40 mg PO BEDTIME 02/26/18 Bupropion HCl [Bupropion Hydrochloride E] 300 mg PO DAILY 02/26/18 Metoprolol Succinate [Toprol Xl] 50 mg PO DAILY 04/20/18 B-Complex W/ Folic Acid [Super B Complex Maxi] 1 tab PO DAILY 08/09/19 Biotin [Biotin Extra Strength] 10,000 mcg PO DAILY 08/09/19 Iodine (Bulk) [Iodine] 12.5 mg PO DAILY 08/09/19 Multiple Vitamins W/ Minerals [Ocuvite Preservision] 1 tab PO BID 08/09/19 Thyroid [[place] Thyroid] 90 mg PO DAILY 08/09/19 Vitamins A & D W/ K [Adk [id number] Unit-Mcg] 1 cap PO DAILY 08/09/19 Review of Systems - Review of Systems Constitutional: States: no symptoms reported EENTM: States: no symptoms reported Respiratory: States: no symptoms reported Cardiology: States: no symptoms reported Gastrointestinal/Abdominal: States: nausea - she had one episode of nausea this morning around 2 AM. Genitourinary: States: no symptoms reported Musculoskeletal: States: no symptoms reported Skin: States: no symptoms reported Neurological: States: see HPI - also some mild dizziness. Endocrine: States: no symptoms reported All other Systems: No Change from Baseline Past Medical History (General) - Patient Medical History Hx Seizures: No Hx Stroke: No Hx Asthma: No Hx of COPD: No Hx Congestive Heart Failure: No Hx Pacemaker: No Hx Hypertension: Yes Hx Diabetes: No Hx MRSA: No Surgical History: Hysterectomy - Vaccination History Hx Influenza Vaccination: Yes Hx Pneumococcal Vaccination: Yes - Social History Hx Alcohol Use: No Hx Substance Use: No Hx Physical Abuse: No Hx Emotional Abuse: No - Activities of Daily Living Hospice Agency (if applicable):: None - Female History Patient is a Female of Child Bearing Age (10 -59 yrs old): No Patient : No Family Medical History - Family History Mother Family History: Unknown Physical Exam - Physical Exam General Appearance: Alert, Comfortable, No apparent distress Eye Exam: bilateral normal Ears, Nose, Throat: hearing grossly normal - moderate wax accumulation in the right ear canal, other - no difficulty with swallowing. Gag reflex is strong. Neck: full range of motion, supple Respiratory: chest non-tender, lungs clear, normal breath sounds, no respiratory distress, no accessory muscle use Cardiovascular/Chest: normal peripheral pulses, regular rate, rhythm, no edema Peripheral Pulses: radial,right: 2+, radial,left: 2+ Gastrointestinal/Abdominal: non tender, soft Rectal Exam: deferred Back Exam: normal inspection Extremity: normal range of motion - with the exception of the right shoulder limitations there are chronic, no pedal edema, normal capillary refill Neurologic: social services counselor II-XII nml as tested, alert, normal mood/affect, oriented x 3, other - right upper and lower extremity limb ataxia. Strength appears grossly preserved as does sensation. Skin Exam: normal color Comments: Vital Signs - 24 hr 08/09/19 08/09/19 08/09/19 08:36 08:37 09:35 Temperature 97.0 F L Pulse Rate [ 74 76 67 brachial] Respiratory 18 18 18 Rate Blood Pressure 176/89 147/78 [Left Arm] O2 Sat by Pulse 97 97 Oximetry 08/09/19 10:00 Temperature Pulse Rate [ 64 brachial] Respiratory 18 Rate Blood Pressure 165/89 [Left Arm] O2 Sat by Pulse 93 L Oximetry Progress - Progress Progress: 08/09/19 10:37 the patient's a 73-year-old female presenting to emergency room secondary to what appears to be a stroke now at a minimum upon arrival of about 7 hours after onset and at maximum about 10 hours after onset deficits appear to be right upper and lower extremity ataxia. The patient is right-handed and is having significant difficulty with walking. She did receive an aspirin here. Noncontrasted head CT fails to show acute pathology. His recommended patient have a CT angiogram of the neck and head upon arrival at the receiving facility. Acceptance at the stroke center is appreciated. Vital signs are stable. Lab work is reassuring. The patient is likely going to need some rehabilitation in addition to completion of the workup for her stroke. brina kaur [phone] - Results/Orders Results/Orders: soil fertility extension specialist shows normal sinus rhythm. Head CT shows no acute pathology. Chronic small vessel ischemic disease. See report for details. Noncontrasted. Chest x-ray shows no acute pathology. See report for details. EKG shows normal sinus rhythm at 64 bpm. Normal axis. Normal R-wave progressi on. No ST segment changes indicative of acute ischemia. Normal QT interval. Laboratory Tests 08/09/19 08/09/19 08/09/19 09:15 09:15 09:15 WBC 7.0 RBC 4.40 Hgb 13.1 Hct 39.2 MCV 89.2 MCH 29.8 MCHC 33.3 RDW 14.4 Plt Count 211 MPV 8.5 Absolute Neuts (auto) 5.70 Absolute Lymphs (auto) 0.70 L Absolute Monos (auto) 0.40 Absolute Eos (auto) 0.20 Absolute Basos (auto) 0.00 Neutrophils % 81.1 H Lymphocytes % 10.0 L Monocytes % 5.9 Eosinophils % 2.4 Basophils % 0.6 PT 9.4 INR 0.95 PTT (SP) 21.7 L D-Dimer, Quantitative Sodium 138 Potassium 4.3 Chloride 103 Carbon Dioxide 26 Anion Gap 13.3 BUN 19 H Creatinine 0.67 BUN/Creatinine Ratio 28.4 H Random Glucose 94 Serum Osmolality 277.7 Calcium 9.5 Magnesium 1.9 Total Bilirubin 0.7 AST 20 ALT 19 Alkaline Phosphatase 67 Creatine Kinase 76 CK-MB (CK-2) 2.0 CK-MB (CK-2) % Not Reportable Troponin I < 0.02 B-Natriuretic Peptide 132.0 H Serum Total Protein 6.6 Albumin 4.1 Globulin 2.5 Albumin/Globulin Ratio 1.6 TSH 0.96 Urine Color Urine Appearance Urine pH Ur Specific Matthews Urine Protein Urine Glucose (UA) Urine Ketones Urine Blood Urine Nitrite Urine Bilirubin Urine Urobilinogen Ur Leukocyte Esterase Urine RBC Urine WBC Ur Epithelial Cells Urine Bacteria Urine Mucus 08/09/19 09:30 WBC RBC Hgb Hct MCV MCH MCHC RDW Plt Count MPV Absolute Neuts (auto) Absolute Lymphs (auto) Absolute Monos (auto) Absolute Eos (auto) Absolute Basos (auto) Neutrophils % Lymphocytes % Monocytes % Eosinophils % Basophils % PT INR PTT (SP) D-Dimer, Quantitative Sodium Potassium Chloride Carbon Dioxide Anion Gap BUN Creatinine BUN/Creatinine Ratio Random Glucose Serum Osmolality Calcium Magnesium Total Bilirubin AST ALT Alkaline Phosphatase Creatine Kinase CK-MB (CK-2) CK-MB (CK-2) % Troponin I B-Natriuretic Peptide Serum Total Protein Albumin Globulin Albumin/Globulin Ratio TSH Urine Color Yellow Urine Appearance Clear Urine pH 5.0 Ur Specific Matthews 1.025 Urine Protein Negative Urine Glucose (UA) Negative Urine Ketones Trace Urine Blood Negative Urine Nitrite Negative Urine Bilirubin Negative Urine Urobilinogen 0.2 Ur Leukocyte Esterase Negative Urine RBC 0-1 Urine WBC 1-3 Ur Epithelial Cells 3-5 Urine Bacteria Rare Urine Mucus Trace - EKG/XRAY/CT CT Ordered: Yes Departure - Departure Clinical Impression: Ischemic stroke Disposition: Transfer to Hospital Condition: Fair Departure Forms: ED Discharge - Pt. Copy, Patient Portal Self Enrollment Referrals: JIMMIE MOLINA IV, KELP CUTTER [Primary Care Provider] - 1-2 Weeks Home Medications: Ambulatory Orders Atorvastatin Calcium [Lipitor] 40 mg PO BEDTIME 02/26/18 Bupropion HCl [Bupropion Hydrochloride E] 300 mg PO DAILY 02/26/18 Metoprolol Succinate [Toprol Xl] 50 mg PO DAILY 04/20/18 B-Complex W/ Folic Acid [Super B Complex Maxi] 1 tab PO DAILY 08/09/19 Biotin [Biotin Extra Strength] 10,000 mcg PO DAILY 08/09/19 Iodine (Bulk) [Iodine] 12.5 mg PO DAILY 08/09/19 Multiple Vitamins W/ Minerals [Ocuvite Preservision] 1 tab PO BID 08/09/19 Thyroid [[place] Thyroid] 90 mg PO DAILY 08/09/19 Vitamins A & D W/ K [Adk [id number] Unit-Mcg] 1 cap PO DAILY 08/09/19 Transfer to Outside Facility - Transfer Information Decision to Transfer Date: 08/09/19 Decision to Transfer Time: 10:39 Reason for Transfer: required specialist not available Accepting Provider:: dr rangel/clay Accepting Facility: [facility]
[2019-08-09 11:06] VITALS: BP 123/76; TEMP 97.1; O2SAT 95
== END 2019-08-09 11:16 | disposition short-term general hospital (02) ==
LOC: ER 08:29
DX: I63.9 Cerebral infarction, unspecified (principal); G81.91 Hemiplegia, unspecified affecting right dominant side; I10 Essential (primary) hypertension; Z79.899 Other long term (current) drug therapy

== ENCOUNTER → 2019-10-04 | Outpatient (CLI) | payer MEDICARE ==
--- NOTE | 2019-10-06 18:08 | MAM ---
EXAM DESCRIPTION: 3D Screening BILATERAL : Digital Mammography. CLINICAL HISTORY: 74 years Female screening . No complaints and no personal history of breast cancer. Female sibling with breast cancer age 70. Remote family history of ovarian cancer. Menarche age 11. Childbirth age 22. Menopause age 50+. Currently on HRT. Sabianist and anterior tendons. Bilateral breast augmentation. Lifetime risk of developing breast cancer (Tyrer-Cuzick model)(%): 6.8. COMPARISON: Bilateral 2-D digital screening mammography with implant displacement technique March 2016.. TECHNIQUE: Bilateral CC and MLO projection full-field images, with Ajith Implant Displacement digital tomosynthesis mammographic technique. Bilateral 2-D digital full-field images, MLO and CC projections, non-displaced. Bilateral digital 2-D full-field MLO images. With implant displacement CAD available for 2-D images. FINDINGS: The breast parenchymal density pattern is: Heterogeneously dense breast tissue, which may obscure small masses. No skin thickening or nipple retraction. Right axillary lymph nodes. Bilateral saline implants are retro-muscular. Implant capsules appear intact where seen and stable. Vascular calcifications. Solitary microcalcifications. Bilateral intramammary lymph nodes. No new focal, stellate mass or density, focal asymmetry , and no suspicious microcalcifications bilaterally. Stable mammograms compared to prior study. Taking into account, differences in mammographic technique. IMPRESSION: Benign exam. Bilateral intramammary lymph nodes. BIRAD CATEGORY: 2 BENIGN FINDINGS. RECOMMENDATIONS: FOLLOW UP: Routine digital bilateral mammographic screening, one year interval from September 2019. Written communication explaining the IMPRESSION and follow-up, will be mailed to the patient and referring health care provider. According to the [employer], yearly mammograms are recommended starting at age 40 and continuing as long as a woman is in good health. Any breast change noted on a breast self-exam should be reported promptly to the patient's healthcare provider. Breast MRI is recommended for women with an approximately 20-25% or greater lifetime risk of breast cancer, including women with a strong family history of breast or ovarian cancer and women who have been treated for Hodgkin's disease. A negative mammographic report should not delay tissue diagnosis in patients with significant clinical history or physical findings. Extremely dense breast tissue limits the sensitivity of digital mammography. Electronically signed by: Juan Antonio Howard MD 10/06/2019 6:07 PM CDT
== END ==
DX: Z12.31 Encounter for screening mammogram for malignant neoplasm of breast (principal)

== ENCOUNTER → 2020-05-08 | Outpatient (CLI) | payer MEDICARE ==
--- NOTE | 2020-05-08 15:43 | RAD ---
EXAM DESCRIPTION: Shoulder,Right 2 or More Views CLINICAL HISTORY: 74 years Female, SHOULDER PAIN RIGHT COMPARISON: 03/05/2019 Findings: Four view(s)/radiograph(s) Reverse right shoulder arthroplasty. No hardware complication. No acute fracture or dislocation. No focal soft tissue swelling. IMPRESSION: Right shoulder arthroplasty. No hardware complication. Electronically signed by: Heath Singh MD 05/08/2020 3:41 PM CDT
--- NOTE | 2020-05-08 15:45 | RAD ---
EXAM DESCRIPTION: Pelvis (accession [id number]), Hip,Right 2 Views (accession [id number]) CLINICAL HISTORY: 74 years, Female, HIP PAIN RIGHT COMPARISON: None TECHNIQUE: AP and frog leg lateral views of the right hip Single x-ray view pelvis FINDINGS: Pelvis one x-ray view Orthopedic hardware is seen in the lower lumbar spine and in the right hip with total right hip arthroplasty. Mild degenerative changes at the SI joints and pubic symphysis. Mild medial left hip joint space narrowing. The bones of the pelvic ring appear intact. Intact appearance of the sacrum and proximal left femur. Aorta is calcified. Right hip two x-ray views 2 views of the right hip reveal total right hip arthroplasty. No periprosthetic osteolysis or dislocation or fracture of the prosthetic components. Bones of the right hemipelvis appear intact. IMPRESSION: Negative for fracture or dislocation. Total right hip arthroplasty. Electronically signed by: Sean Crowe MD 05/08/2020 3:44 PM CDT
--- NOTE | 2020-05-08 15:46 | RAD ---
EXAM DESCRIPTION: Pelvis (accession [id number]), Hip,Right 2 Views (accession [id number]) CLINICAL HISTORY: 74 years, Female, HIP PAIN RIGHT COMPARISON: None TECHNIQUE: AP and frog leg lateral views of the right hip Single x-ray view pelvis FINDINGS: Pelvis one x-ray view Orthopedic hardware is seen in the lower lumbar spine and in the right hip with total right hip arthroplasty. Mild degenerative changes at the SI joints and pubic symphysis. Mild medial left hip joint space narrowing. The bones of the pelvic ring appear intact. Intact appearance of the sacrum and proximal left femur. Aorta is calcified. Right hip two x-ray views 2 views of the right hip reveal total right hip arthroplasty. No periprosthetic osteolysis or dislocation or fracture of the prosthetic components. Bones of the right hemipelvis appear intact. IMPRESSION: Negative for fracture or dislocation. Total right hip arthroplasty. Electronically signed by: Sean Crowe MD 05/08/2020 3:44 PM CDT
== END ==
LOC: RAD 07:56
PROVIDERS: ATTEND Orthopaedic Surgery
DX: M25.551 Pain in right hip (principal); M25.511 Pain in right shoulder; Z96.641 Presence of right artificial hip joint; Z96.611 Presence of right artificial shoulder joint